=== PATIENT | female | born 1965 | race Caucasian/White ===

== ENCOUNTER 2017-02-14 11:04 | Day surgery (SDC) | payer OTHER ==
[~2017-02-14] VITALS: Ht 157.5 cm; Wt 110.8 kg
[2017-02-14] MEDS ORDERED: NO MEDS (11:33)
[2017-02-14 11:57] VITALS: BP 138/79; PULSE 64; RESP 19
--- NOTE | 2017-02-14 12:53 | OPPN ---
Date/Time of Note Date/Time of Note DATE: 02/14/17 TIME: 12:46 Proc Note GI Procedure date: Feb 14, 2017 Pre-procedure Diagnosis History of a chronic heartburn chronic abdominal pain history of gastric ulcer Post-procedure Diagnosis Severe distal erosive esophagitis Patchy gastritis Mild hiatal hernia Operation Performed EGD Surgeon: NAZARIO GOLDBERG MD Tourniquet Time: None Estimated blood loss: none Transfusion Required: no Specimens Gastric biopsy and esophageal biopsy Grafts/Implants: none Grafts/Implants None Tubes/Drains None Complications None Pt Condition post procedure: stable Indications Severe heartburn and abdominal pain Operative\Procedure Findings Severe distal erosive esophagitis patchy gastritis After informed written consent is obtained patient was ostial in the left lateral side intravenous anesthesia was given by PROBATION MANAGER The patient become somnolent Olympus video upper endoscope was introduced into the oropharynx then into the esophagus Multiple linear erosions were noted in the lower esophagus starting from the GE junction to the extent of her 2-1/2 cm in length Multiple biopsies were obtained to rule out Miles's esophagus Scope with this and was advanced into the stomach several areas of erythema was noted Biopsy was done from the antrum the lesser curvature of the fundus to rule out H. pylori infection Duodenum appear normal Scope with this and was withdrawn and the procedure was terminated Plan recommend Protonix 40 mg twice a day Wait for the pathology Of dictation please send copy to my office and also to Dr. modesta Hewitt cc ; NAZARIO Suarez dr, MD Feb 14, 2017 12:53
--- NOTE | 2017-02-14 12:59 | OPPN ---
Date/Time of Note Date/Time of Note DATE: 02/14/17 TIME: 12:59 Proc Note GI Procedure date: Feb 14, 2017 Pre-procedure Diagnosis Rule out colon polyp Post-procedure Diagnosis One diverticulum in the descending colon Minimal internal and external hemorrhoids Operation Performed Colonoscopy Surgeon: NAZARIO GOLDBERG MD Anesthesia Type: moderate sedation Tourniquet Time: None Estimated blood loss: none Transfusion Required: no Specimen: none Grafts/Implants: none Complications: no Pt Condition post procedure: stable Disposition: PACU Indications Rule out colon polyp Operative\Procedure Findings After the informed written consent is obtained patient was ostial in the left lateral side intravenous anesthesia was given by [employer] W[employer] When the patient become somnolent Olympus colonoscope was introduced into the rectum and advanced all the way to the cecum One isolated diverticulum noted in the descending colon No polyps noted Antibiotic minimal internal minimal external hemorrhoids were noted And the procedure was terminated Plan recommend repeat colonoscopy in 10 years cc ;NAZARIO Suarez dr, MD Feb 14, 2017 12:59
[2017-02-14 13:14] VITALS: BP 134/64; PULSE 62; RESP 14
== END 2017-02-14 14:03 | disposition home or self-care (01) ==
LOC: GIL 11:04
PROVIDERS: ATTEND Internal Medicine Gastroenterology
DX: Z12.11 Encounter for screening for malignant neoplasm of colon (principal); K21.0 Gastro-esophageal reflux disease with esophagitis; K29.60 Other gastritis without bleeding; K44.9 Diaphragmatic hernia without obstruction or gangrene; K57.90 Diverticulosis of intestine, part unspecified, without perforation or abscess without bleeding; K64.8 Other hemorrhoids; K64.4 Residual hemorrhoidal skin tags; J44.9 Chronic obstructive pulmonary disease, unspecified; E66.01 Morbid (severe) obesity due to excess calories; Z68.41 Body mass index [BMI] 40.0-44.9, adult
CPT/HCPCS: 43239; 45378; 88305; 88312; 88313; Z7610